=== PATIENT | male | born 1950 | race Two or more races ===

== ENCOUNTER 2023-06-03 19:52 | Emergency (ER) | payer OTHER ==
[~2023-06-03] VITALS: Ht 152.4 cm; Wt 80.7 kg
[2023-06-03] MEDS ORDERED: COZAAR100 MG PO (20:56)
[2023-06-03] MEDS ORDERED: FINASTERIDE5 MG PO (20:57)
[2023-06-03] MEDS ORDERED: TAMS0.4C PO (20:57)
[2023-06-03] MEDS ORDERED: KAPSPARGO SPRIN25 MG (20:57)
[2023-06-03 23:34] LABS: HEMATOCRIT 41.7 % (39.0-48.0); HEMOGLOBIN 14.1 g/dL (13-16.00); MEAN CELL VOLUME 89.9 fL (80.0-100.00); MEAN CORPUSCULAR HEMOGLOBIN 30.5 pg (27.00-32.0); PLATELET COUNT 230 K/uL (150-450); RED BLOOD COUNT 4.64 M/uL (4.00-6.00)
[2023-06-03 23:45] LABS: URINE APPEARANCE Clear; URINE BILIRRUBIN Negative (NEGATIVE); URINE BLOOD Small; URINE COLOR Yellow; URINE GLUCOSE Negative (NEGATIVE); URINE LEUKOCYTE Negative; URINE NITRATE Negative
[2023-06-03 23:48] LABS: URINE BACTERIA 23.9 uL (0.0-1933); URINE EPITHELIAL CELLS 2.9 uL (0.0-38.8); URINE PROTEIN 300 (NEGATIVE); URINE RBC 45.5 uL (0.0-20.8); URINE WBC 17.4 uL (0.0-23.2)
[2023-06-04 00:08] LABS: ALBUMIN 3.6 gm/dL (3.4-5.0); BILIRUBIN TOTAL 0.39 mg/dL (0.3-1.2); CALCIUM 8.8 mg/dL (8.5-10.1); CREATININE SERUM 2.82 mg/dL (0.70-1.30); GFR 22.14; POTASSIUM 4.98 mEq/L (3.5-5.1); TOTAL PROTEIN 7.6 gm/dL (6.4-8.2)
[2023-06-04 00:12] LABS: PROSTATIC SPECIFIC ANTIGEN 4.89 NG/ML (0.010-4.00)
== END 2023-06-04 02:49 | disposition home or self-care (01) ==
LOC: ER 19:53
PROVIDERS: Emergency Medicine
DX: R31.9 Hematuria, unspecified (principal); N28.1 Cyst of kidney, acquired; K57.30 Diverticulosis of large intestine without perforation or abscess without bleeding; N40.0 Benign prostatic hyperplasia without lower urinary tract symptoms